=== PATIENT | female | born 1965 | race African-American/Black ===

== ENCOUNTER 2016-03-08 12:47 | Emergency (ER) | payer BC, MEDICARE ==
[2016-03-08 12:58] VITALS: BP 202/105; PULSE 103; TEMP 97.9; BMI 31.5
--- NOTE | 2016-03-08 13:03 | EDPRACDOC ---
- General Information Chief Complaint: Wrist Pain Stated Complaint: PAIN RT WRIST & ELBOW HX GOUT Time Seen by Provider: 03/08/16 12:54 Home Medications: Home Medications Aspirin 81 mg PO DAILY 03/23/14 Atorvastatin [Lipitor 40 mg Tablet] 40 mg PO BID 03/23/14 Benazepril HCl [Lotensin] 40 mg PO .DAILY SEE COMMENTS 03/23/14 Colchicine [Colcrys] 0.6 mg PO DAILY 03/23/14 Febuxostat [Uloric] 80 mg PO DAILY 03/23/14 Acetaminophen Ex Str Tablet [TYLENOL EXTRA STRENGTH Tablet] 1,000 mg PO Q6H PRN 10/28/15 Amlodipine [Norvasc] 5 mg PO DAILY 10/28/15 Cyclobenzaprine HCl [Flexeril] 10 mg PO TID PRN #15 tablet 10/28/15 Hydrocodone Bit/Acetaminophen [Hydrocodon-Acetaminophen 5-325] 1 tab PO Q6H PRN #14 tab 10/28/15 Lisinopril [Prinivil] 10 mg PO .DAILY SEE COMMENTS 10/28/15 Naproxen Sodium 500 mg PO BID PRN #20 tablet.sa 03/08/16 Oxycodone Immediate Release [Oxy-Ir] 5 mg PO Q6H PRN #15 tab 03/08/16 Allergies/Adverse Reactions: Allergies Allergy/AdvReac Type Severity Reaction Status Date / Time codeine Allergy Anxiety Verified 10/28/15 08:28 - History of Present Illness Onset: 1 DAY HPI: PT STATES HER GOUT IS FLARING SINCE YESTERDAY, COMPLAINS OF PAIN IN RIGHT WRIST AND RIGHT ELBOW, TYPICAL GOUT FOR HER, USING HER COLCHICINE WITHOUT RELIEF. Location: Reports: Dorsal, Ulnar, Radial Dominant Side: Reports: Right Mechanism: Reports: No Injury/Trauma Circumstances: Reports: Other (GOUT) Tetanus Up To Date?: Yes Pain Severity: Reports: Severe Associated Signs and Symptoms: Reports: Elbow Pain ED Past Medical History - History Reviewed Yes Nurses notes reviewed and agree except as marked - Patient Medical History Cardiac History: Reports: Hypertension, Hypercholesterolemia Psychological History: Denies: Depression Additional Past Medical History: nephrotic syndrome - Social Medical History Smoking Status: Never smoker EDM Review of Systems - Review of Systems Constitutional: negative: Chills, Fever Neurological: negative: Numbness, Weakness Musculoskeletal: Elbow, Wrist Integumentary: No Symptoms Reported - Physical Exam Constitutional: Alert (Awake), No apparent distress Oriented to: Time, Person, Place Last recorded Vital Signs: Last Vital Signs Temp 97.9 F 03/08/16 12:56 Pulse 103 03/08/16 12:56 Resp 20 03/08/16 12:56 BP 202/105 H 03/08/16 12:56 Pulse Ox 100 03/08/16 12:56 Oxygen Pulse Oxygen Saturation 100 O2 Device Room Air Oxygen Flow Rate Fraction of Inspired Oxygen ( FIO2) - HEENT Head: Normal ( normocephalic) - Integumentary Skin: Normal, Warm, Dry Lymphatics: Normal (no adenopathy) - Neurologic Memory Impaired: Normal Motor Function: Normal (Normal tone, Pulses 2+ No cyanosis or edema, FROM) Cranial Nerve: Normal (CN II-X11 intact sensation, strength 5/5) Cerebellar: Normal Mood Description: Normal Perception: Normal ED Wrist Problem Exam Wrist Symptoms: Swelling (MINIMAL), Limited ROM, Moderate Tenderness. negative : Deformity Hand Symptoms: Normal. negative: Swelling, Deformity Forearm Symptoms: Normal. negative: Swelling, Deformity Distal Function/Circulation: Normal, Capillary Refill. negative: Motor Deficit , Pulse Deficit, Sensory Deficit - Integumentary Skin: Erythema, Warm - Other Exam Other Exam Findings: RIGHT ELBOW: MILD ERYTHEMA AND EDEMA, PAIN THROUGHOUT ROM ED Wrist Problem MDM - Differential Diagnosis Differential Diagnosis: Gout Decision Time to Discharge: 13:05 - Departure Disposition: Home Condition: Stable Final Diagnosis: ACUTE GOUT EXACERBATION Instructions: Gout (ED) Education/Counseling Given To: Patient Education/Counseling Given Regarding: Diagnosis, Treatment, Prognosis, Follow Up Referrals: None,No Provider [Primary Care Provider] - One Week Prescriptions: Naproxen Sodium 500 mg PO BID PRN #20 tablet.sa PRN Reason: Pain Oxycodone Immediate Release [Oxy-Ir] 5 mg PO Q6H PRN #15 tab PRN Reason: Pain Additional Instructions: APPLY WARM COMPRESSES TO AREAS OF SORENESS 20 MINS AT A TIME 4 - 5 TIMES DAILY NEEDED FOR PAIN.
== END 2016-03-08 13:14 | disposition home or self-care (01) ==
LOC: EDMC 12:47
DX: M10.9 Gout, unspecified (principal)
CPT/HCPCS: 99282